=== PATIENT | male | born 1965 | race African-American/Black ===

== ENCOUNTER 2017-06-10 12:10 | Emergency (ER) | payer MEDICARE, OTHER ==
[~2017-06-10] VITALS: Ht 182.9 cm; Wt 97.5 kg
[~2017-06-10 12:10] MED LIST: PHEN100C PO; PHEN97.2 PO
[2017-06-10] MEDS ORDERED: 0.9 % SODIUM CHLORIDE 10 ML DISP.SYRIN. IV PRN (12:45)
[2017-06-10 12:58] LABS: BASO % 1 % (0-3); EOS % 0 % (0-3); HEMATOCRIT 41.7 % (39.0-53.0); HEMOGLOBIN 13.3 g/dL (13.0-17.5); LYMPH # 0.7 x10^3/uL (1.0-4.8); LYMPH % 11 % (24-48); MEAN CORPUSCULAR HEMOGLOBIN 27 pg (25-35); MEAN CORPUSCULAR HGB CONC 32 g/dL (31-37); MEAN CORPUSCULAR VOLUME 85 fL (79-100); MONO % 5 % (0-9); NEUT % 83 % (31-73); PLATELET COUNT 193 x10^3/uL (140-400); RED BLOOD COUNT 4.89 x10^6/uL (4.30-5.70); RED CELL DISTRIBUTION WIDTH 14.5 % (11.5-14.5); WHITE BLOOD COUNT 6.5 x10^3/uL (4.0-11.0)
[2017-06-10 13:06] LABS: INR 1.2 (0.8-1.1)
--- NOTE | 2017-06-10 13:11 | EKG ---
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
[2017-06-10 13:14] LABS: CALCIUM 8.6 mg/dL (8.5-10.1); CREATININE 1.6 mg/dL (0.7-1.3); GFR 55.2; POTASSIUM 4.3 mmol/L (3.5-5.1)
[2017-06-10 13:16] LABS: ALBUMIN 4.4 g/dL (3.4-5.0); DIRECT BILIRUBIN 0.1 mg/dL (0.0-0.2); TOTAL BILIRUBIN 0.2 mg/dL (0.2-1.0); TOTAL PROTEIN 8.5 g/dL (6.4-8.2)
--- NOTE | 2017-06-10 13:44 | RAD ---
CT HEAD WITHOUT CONTRAST History: seizure . Comparison: CT head dated 12/08/2014. Procedure: Axial images are obtained of the head from the skull base through the vertex without IV contrast. Findings: Gates-white matter differentiation is preserved. The ventricles and sulci are normal for the patient's age.. No mass-effect, midline shift, hemorrhage or obvious acute infarction is identified. Basilar cisterns are patent. Bone windows demonstrate no significant calvarial abnormality.The visualized paranasal sinuses appear clear. Mastoid air cells are well aerated. Redemonstration of left frontal scalp punctate metallic foreign body. IMPRESSION: No acute intracranial abnormality. PQRS Compliance Statement: One or more of the following individualized dose reduction techniques were utilized for this examination: 1. Automated exposure control 2. Adjustment of the mA and/or kV according to patient size 3. Use of iterative reconstruction technique
[2017-06-10 15:19] LABS: PHENOBARB 29.2 mcg/mL (15.0-40.0)
[2017-06-10 17:45] LABS: BARBITURATES POS (NEG); BENZODIAZEPINES NEG (NEG); CANNABINOIDS NEG (NEG); COCAINE NEG (NEG); METHADONE NEG (NEG); OPIATES NEG (NEG); PHENCYCLIDINE NEG (NEG)
[2017-06-10] MEDS ORDERED: FOSPHENYTOIN 1,000 MG in IV NORMAL SALINE 50ML 50 ML IV ONE (18:00)
[2017-06-10] MEDS ORDERED: ACETAMINOPHEN 500 MG TABLET PO ONE (18:45)
--- NOTE | 2017-06-10 18:46 | PHYS DOC ---
Past Medical History Past Medical History: Seizure, Other Additional Past Medical Histor: BLIND Past Surgical History: Other Additional Past Surgical Histo: HEAD SURGERY R/T FALL, HEAD INJURY Alcohol Use: None Drug Use: None Adult General Chief Complaint Chief Complaint: SEIZURE HPI HPI 52-year-old male presenting to the emergency department today with seizure. The patient has had 3 intermittent seizures today and return to baseline the first 2 times. Upon arrival he is postictal after having his third seizure. He has a history of seizure disorder and currently takes phenobarbital and fosphenytoin. He reports running out of his fosphenytoin recently because he had difficulty getting his medications. He is currently blind and is taken care of by his sister who is here with him today. Onset today. Location brain. Duration intermittent. No alleviating or exacerbating factors. Review of systems is negative for abdominal pain fevers chills cough chest pain shortness of breath. All other review of systems is negative unless otherwise noted in history of present illness. ED course: 52-year-old male presenting to the emergency department today with 3 seizures. After having his third seizure he arrived to the emergency department and was initially postictal and confused. After a period of observation the patient's mental status improved he was alert and oriented. I had a long discussion with his sister about the risks and benefits of admission versus discharge. I discussed the case with our neurologist Dr. Resendiz at about 530pm who recommended giving the patient an IV bolus dose of his fosphenytoin to follow-up with his doctor in the next few days. I confirmed with the sister that she feels comfortable taking care of him at home. He does have fosphenytoin and phenobarbital at home to take. Initially he had received IV Keppra here in the emergency department because initially we were unsure what antiepileptic medication he was on because it took a while for his sister to get here. Review of Systems Review of Systems SEE ABOVE. Current Medications Current Medications Current Medications Medications (Trade) Dose Ordered Sig/Rubin Start Time Stop Time Status Last Admin Dose Admin Acetaminophen (Tylenol) 500 mg 1X ONCE 06/10/17 18:45 06/10/17 18:46 DC Fosphenytoin Sodium 1000 mg/ Sodium Chloride 70 ml @ 280 mls/hr 1X ONCE 06/10/17 18:00 06/10/17 18:14 DC 06/10/17 18:06 280 MLS/HR Levetiracetam 1000 mg/Sodium Chloride 110 ml @ 440 mls/hr 1X ONCE 06/10/17 14:00 06/10/17 14:14 DC 06/10/17 14:05 440 MLS/HR Sodium Chloride (Normal Saline Flush) 10 ml QSHIFT PRN 06/10/17 12:45 06/10/17 14:04 10 ML Allergies Allergies Allergies Coded Allergies Type Severity Reaction Last Updated Verified No Known Drug Allergies 12/08/14 No Physical Exam Physical Exam SEE ABOVE Constitutional: Well developed, well nourished, no acute distress, non-toxic appearance. HENT: Normocephalic, atraumatic, bilateral external ears normal, oropharynx moist, no oral exudates, nose normal. [] Eyes: blind, EOMI, conjunctiva normal, no discharge. Neck: Normal range of motion, no tenderness, supple, no stridor. Cardiovascular:Heart rate regular rhythm, no murmur [] Lungs & Thorax: Bilateral breath sounds clear to auscultation Abdomen: Bowel sounds normal, soft, no tenderness, no masses, no pulsatile masses. [] Skin: Warm, dry, no erythema, no rash. [] Back: No tenderness, no CVA tenderness. [] Extremities: No tenderness, no cyanosis, no clubbing, ROM intact, no edema. [] Neurologic: Mental status: Awake oriented and alert x3 Cranial nerves: Extraocular movements intact, eyebrows chalo bilaterally smile symmetric, uvula elevation, shoulder shrug intact, tongue protrusion normal DTRs: 2+ Sensation: equal and normal in all extremities Strength: 5/5 in upper and lower extremities bilaterally Psychologic: Affect normal, judgement normal, mood normal. Current Patient Data Vital Signs Vital Signs Date Time Temp Pulse Resp B/P (MAP) Pulse Ox O2 Delivery O2 Flow Rate FiO2 06/10/17 12:10 99.5 110 21 117/73 (88) 92 Room Air 99.5 Lab Values Laboratory Tests Test 06/10/17 12:45 06/10/17 17:30 White Blood Count 6.5 x10^3/uL (4.0-11.0) Red Blood Count 4.89 x10^6/uL (4.30-5.70) Hemoglobin 13.3 g/dL (13.0-17.5) Hematocrit 41.7 % (39.0-53.0) Mean Corpuscular Volume 85 fL (79-100) Mean Corpuscular Hemoglobin 27 pg (25-35) Mean Corpuscular Hemoglobin Concent 32 g/dL (31-37) Red Cell Distribution Width 14.5 % (11.5-14.5) Platelet Count 193 x10^3/uL (140-400) Neutrophils (%) (Auto) 83 % (31-73) H Lymphocytes (%) (Auto) 11 % (24-48) L Monocytes (%) (Auto) 5 % (0-9) Eosinophils (%) (Auto) 0 % (0-3) Basophils (%) (Auto) 1 % (0-3) Neutrophils # (Auto) 5.4 x10^3uL (1.8-7.7) Lymphocytes # (Auto) 0.7 x10^3/uL (1.0-4.8) L Monocytes # (Auto) 0.3 x10^3/uL (0.0-1.1) Eosinophils # (Auto) 0.0 x10^3/uL (0.0-0.7) Basophils # (Auto) 0.0 x10^3/uL (0.0-0.2) Prothrombin Time 14.0 SEC (11.7-14.0) Prothrombin Time INR 1.2 (0.8-1.1) H PTT 23 SEC (24-38) L Sodium Level 135 mmol/L (136-145) L Potassium Level 4.3 mmol/L (3.5-5.1) Chloride Level 102 mmol/L (98-107) Carbon Dioxide Level 22 mmol/L (21-32) Anion Gap 11 (6-14) Blood Urea Nitrogen 13 mg/dL (8-26) Creatinine 1.6 mg/dL (0.7-1.3) H Estimated GFR (Cockcroft-Gault) 55.2 Glucose Level 99 mg/dL (70-99) Lactic Acid Level 5.8 mmol/L (0.4-2.0) *H Calcium Level 8.6 mg/dL (8.5-10.1) Total Bilirubin 0.2 mg/dL (0.2-1.0) Direct Bilirubin 0.1 mg/dL (0.0-0.2) Aspartate Amino Transferase (AST) 20 U/L (15-37) Alanine Aminotransferase (ALT) 30 U/L (16-63) Alkaline Phosphatase 92 U/L (46-116) Total Protein 8.5 g/dL (6.4-8.2) H Albumin 4.4 g/dL (3.4-5.0) Phenytoin (Dilantin) Level 4.8 mcg/mL (10.0-20.0) L Phenytoin Last Dose Date Phenytoin Last Dose Time Phenobarbital Level 29.2 mcg/mL (15.0-40.0) Phenobarbital Last Dose Date Phenobarbital Last Dose Time Urine Opiates Screen Neg (NEG) Urine Methadone Screen Neg (NEG) Urine Barbiturates Pos (NEG) Urine Phencyclidine Screen Neg (NEG) Urine Amphetamine/Methamphetamine Neg (NEG) Urine Benzodiazepines Screen Neg (NEG) Urine Cocaine Screen Neg (NEG) Urine Cannabinoids Screen Neg (NEG) Urine Ethyl Alcohol Neg (NEG) Laboratory Tests 06/10/17 12:45 Laboratory Tests 06/10/17 12:45 EKG EKG [] Radiology/Procedures Radiology/Procedures [] Course & Med Decision Making Course & Med Decision Making Pertinent Labs and Imaging studies reviewed. (See chart for details) [] Dragon Disclaimer Dragon Disclaimer This electronic medical record was generated, in whole or in part, using a voice recognition dictation system. Departure Departure Impression: Primary Impression: Seizure Disposition: 01 HOME, SELF-CARE Condition: STABLE Referrals: CESAR ASHER MD (PCP) Patient Instructions: Seizure, Adult Additional Instructions: Thank you for allowing us to participate in your care today. Followup with your neurologist in 5-7 days for superintendent terminal seizure management. Call your Primary Doctor tomorrow and inform them of your visit today. If you do not have a primary care provider you can ask for a list of our primary care providers. Return to the emergency department you have any new or concerning findings. This should be evaluated by the primary care physician and any necessary consulting services for continued management within a few days after discharge. Return to emergency room if you have any new or concerning symptoms including but not limited to fever, chills, nausea, vomiting, intractable pain, any new rashes, chest pain, shortness of air, uncontrolled bleeding, difficulty breathing, and/or vision loss. MATIAS PEDRAZA MD Jun 10, 2017 18:46
[2017-06-10 19:15] VITALS: BP 125/79
== END 2017-06-10 19:34 | disposition home or self-care (01) ==
LOC: ER 12:10
DX: R56.9 Unspecified convulsions (principal); G40.909 Epilepsy, unspecified, not intractable, without status epilepticus
CPT/HCPCS: 36415; 70450; 80048; 80076; 80184; 80185; 80307; 83605; 85025; 85610; 85730; 93005; 96365; 96367; 99285; J1953; Q2009; G0479

== ENCOUNTER → 2017-12-28 | Outpatient (CLI) | payer MEDICARE, OTHER, MEDICAID ==
[2017-12-28 09:28] LABS: ADD MAN DIFF? NO
[2017-12-28 09:40] LABS: BASO % 1 % (0-3); EOS # 0.1 x10^3/uL (0.0-0.7); EOS % 3 % (0-3); HEMATOCRIT 38.8 % (39.0-53.0); HEMOGLOBIN 12.7 g/dL (13.0-17.5); LYMPH # 1.8 x10^3/uL (1.0-4.8); LYMPH % 60 % (24-48); MEAN CORPUSCULAR HEMOGLOBIN 28 pg (25-35); MEAN CORPUSCULAR HGB CONC 33 g/dL (31-37); MEAN CORPUSCULAR VOLUME 84 fL (79-100); MONO # 0.3 x10^3/uL (0.0-1.1); MONO % 9 % (0-9); NEUT # 0.8 x10^3uL (1.8-7.7); NEUT % 27 % (31-73); PLATELET COUNT 180 x10^3/uL (140-400); RED BLOOD COUNT 4.61 x10^6/uL (4.30-5.70)
[2017-12-28 10:01] LABS: ALBUMIN/GLOBULIN RATIO 1.1 (1.0-1.7); ALT (SGPT) 26 U/L (16-63); ANION GAP 7 (6-14); AST (SGOT) 15 U/L (15-37); BLOOD UREA NITROGEN 13 mg/dL (8-26); BUN/CREATININE RATIO 11 (6-20); CALCIUM 8.6 mg/dL (8.5-10.1); CARBON DIOXIDE 28 mmol/L (21-32); CHLORIDE 106 mmol/L (98-107); CHOLESTEROL 194 mg/dL (0-200); CREATININE 1.2 mg/dL (0.7-1.3); GFR 76.9; GLUCOSE 111 mg/dL (70-99); HDLC 92 mg/dL (40-60); LDLC 84 mg/dL (0-100); NON-HDL CHOLESTEROL 102 mg/dL (0-129); POTASSIUM 4.9 mmol/L (3.5-5.1); SODIUM 141 mmol/L (136-145); TOTAL BILIRUBIN 0.3 mg/dL (0.2-1.0); TOTAL PROTEIN 7.5 g/dL (6.4-8.2); TRIGLYCERIDES 90 mg/dL (0-150); VLDLC 18 mg/dL (0-40)
[2017-12-28 10:02] LABS: THYROID STIM HORMONE (TSH) 0.584 uIU/mL (0.358-3.74)
[2017-12-28 10:13] LABS: ALK PHOS 107 U/L (46-116); CHOLESTEROL/HDL RATIO 2.1
[2017-12-28 10:17] LABS: PROSTATE SPECIFIC ANTIGEN 4.81 ng/mL (0.00-4.00)
[2017-12-28 14:34] LABS: THYROXINE 3.9 ug/dL (4.5-12.0)
== END | disposition home or self-care (01) ==
LOC: LAB 08:16
DX: Z12.5 Encounter for screening for malignant neoplasm of prostate (principal); E78.2 Mixed hyperlipidemia; E55.9 Vitamin D deficiency, unspecified; R56.9 Unspecified convulsions; R53.83 Other fatigue
CPT/HCPCS: 36415; 71046; 80053; 80061; 80185; 82306; 84436; 84443; 85025; 86141; G0103

== ENCOUNTER → 2018-12-08 | Outpatient (CLI) | payer MEDICARE, OTHER ==
[2018-12-08 10:25] LABS: BASO % 1 % (0-3); EOS # 0.1 x10^3/uL (0.0-0.7); EOS % 3 % (0-3); HEMATOCRIT 42.7 % (39.0-53.0); HEMOGLOBIN 13.5 g/dL (13.0-17.5); LYMPH # 1.8 x10^3/uL (1.0-4.8); LYMPH % 57 % (24-48); MEAN CORPUSCULAR HEMOGLOBIN 27 pg (25-35); MEAN CORPUSCULAR HGB CONC 32 g/dL (31-37); MEAN CORPUSCULAR VOLUME 85 fL (79-100); MONO # 0.2 x10^3/uL (0.0-1.1); MONO % 8 % (0-9); NEUT % 31 % (31-73); PLATELET COUNT 205 x10^3/uL (140-400); RED BLOOD COUNT 5.06 x10^6/uL (4.30-5.70); RED CELL DISTRIBUTION WIDTH 14.4 % (11.5-14.5); WHITE BLOOD COUNT 3.2 x10^3/uL (4.0-11.0)
[2018-12-08 10:36] LABS: ALBUMIN 4.3 g/dL (3.4-5.0); ALBUMIN/GLOBULIN RATIO 1.1 (1.0-1.7); ALK PHOS 96 U/L (46-116); ALT (SGPT) 18 U/L (16-63); ANION GAP 10 (6-14); AST (SGOT) 13 U/L (15-37); BLOOD UREA NITROGEN 13 mg/dL (8-26); BUN/CREATININE RATIO 11 (6-20); CALCIUM 8.8 mg/dL (8.5-10.1); CARBON DIOXIDE 27 mmol/L (21-32); CHLORIDE 107 mmol/L (98-107); CHOLESTEROL 230 mg/dL (0-200); CREATININE 1.2 mg/dL (0.7-1.3); GFR 76.6; GLUCOSE 105 mg/dL (70-99); HDLC 85 mg/dL (40-60); LDLC 128 mg/dL (0-100); PHENY 12.6 mcg/mL (10.0-20.0); POTASSIUM 4.3 mmol/L (3.5-5.1); SODIUM 144 mmol/L (136-145); TOTAL BILIRUBIN 0.2 mg/dL (0.2-1.0); TOTAL PROTEIN 8.1 g/dL (6.4-8.2); TRIGLYCERIDES 83 mg/dL (0-150); VLDLC 17 mg/dL (0-40)
[2018-12-08 10:37] LABS: CHOLESTEROL/HDL RATIO 2.7
[2018-12-08 22:10] LABS: HEMOGLOBIN A1C 5.1 % (4.8-5.6)
== END | disposition home or self-care (01) ==
LOC: LAB 09:48
PROVIDERS: ATTEND Internal Medicine Cardiovascular Disease
DX: Z12.5 Encounter for screening for malignant neoplasm of prostate (principal); I10 Essential (primary) hypertension; E78.2 Mixed hyperlipidemia; R94.31 Abnormal electrocardiogram [ECG] [EKG]; G40.909 Epilepsy, unspecified, not intractable, without status epilepticus; E55.9 Vitamin D deficiency, unspecified; R73.9 Hyperglycemia, unspecified; R53.83 Other fatigue; Z73.82 Dual sensory impairment; Z87.820 Personal history of traumatic brain injury
CPT/HCPCS: 36415; 80053; 80061; 80185; 82306; 83036; 83695; 84443; 85025; 86141; G0103